=== PATIENT | female | born 1975 | race African-American/Black ===

== ENCOUNTER 2021-04-15 21:56 | Emergency (ER) | payer SELFPAY ==
[~2021-04-15] VITALS: Ht 177.8 cm; Wt 113.4 kg
[2021-04-15 22:00] VITALS: BP 108/79
--- NOTE | 2021-04-15 22:00 | NUR ---
TO LOBBY A/W BED
--- NOTE | 2021-04-16 03:06 | NUR ---
NO ANSWER WHEN CALLED FROM [facility]
--- NOTE | 2021-04-16 03:30 | NUR ---
called pt in lobby, no answer
--- NOTE | 2021-04-16 03:45 | NUR ---
called x 3 no answer
--- NOTE | 2021-04-16 06:30 | NUR ---
PATIENT STILL ASLEEP IN [facility] NOTED
--- NOTE | 2021-04-16 07:26 | NUR ---
PT SLEEPING IN LOBBY. PT STATED SHE NEEDED TO LEAVE AND DID NOT WANT TO SEE THE DOCTOR. DR MARTINEZ MADE AWARE
--- NOTE | 2021-04-16 07:27 | NUR ---
PATIENT LEFT WITHOUT BEING SEEN BY DR. LIU DURING BRICK PITCHER AND DR MARTINEZ FOR DAY SHIFT. NO FURTHER CARE PROVIDED FOR PATIENT.
== END 2021-04-16 07:27 | disposition left against medical advice (07) ==
LOC: MED 21:56
DX: F41.9 Anxiety disorder, unspecified (principal); Z53.21 Procedure and treatment not carried out due to patient leaving prior to being seen by health care provider